=== PATIENT | male | born 1955 | race Caucasian/White ===

== ENCOUNTER 2022-03-23 17:08 | Inpatient (IN) | payer MEDICAID, MEDICARE ==
[~2022-03-23] VITALS: Ht 172.7 cm; Wt 56.7 kg
[2022-03-23 17:12] VITALS: BP_SYST 144
[2022-03-23] MEDS ORDERED: NACL 0.9% 1,000 ML IV ONE (17:30)
[2022-03-23] MEDS ORDERED: IBUPROFEN 800 MG TABLET PO ONE (17:30)
[2022-03-23 17:59] LABS: HEMATOCRIT 28.1 % (36-54); HEMOGLOBIN 9.7 g/dL (14.0-18.0); MEAN CORPUSCULAR HEMOGLOBIN 28 pg (27-31); MEAN CORPUSCULAR HGB CONC 34 % (32-36); MEAN CORPUSCULAR VOLUME 82 fL (79.0-98.0); PLATELET COUNT (AUTO) 218 K/uL (130-430); RED BLOOD CELL COUNT(AUTO) 3.43 MIL/uL (4.2-6.2); RED CELL DISTRIBUTION WIDTH 14.6 % (9.0-15.0)
[2022-03-23 18:19] LABS: ANION GAP 10 (5-15)
[2022-03-23 18:27] LABS: BAND % (MANUAL) 20 % (0-6); BASOPHILS % (MANUAL) 0 % (0-2); EOSINOPHILS % (MANUAL) 0 % (0-7); LYMPHOCYTES % (MANUAL) 2 % (20-46); MONOCYTES % (MANUAL) 1 % (0-11)
[2022-03-23] MEDS ORDERED: VANCOMYCIN HCL 1,000 MG in NS 250 ML IV ONE (18:30)
[2022-03-23] MEDS ORDERED: PIPERACILLIN/TAZO 3.375 GM in NS 50 ML IV ONE (18:30)
[2022-03-23] MEDS ORDERED: PIPERACILLIN/TAZOBACTAM 3.375 GM/VIAL (ZOSYN) IV ONE (18:33)
[2022-03-23 18:34] LABS: ALANINE AMINOTRANSFERASE 18 U/L (12-78); ALBUMIN 3.1 g/dL (3.4-4.8); ASPARTATE AMINOTRANSFERASE 58 U/L (10-37); TOTAL BILIRUBIN 0.5 mg/dL (0.0-1.0)
[2022-03-23 18:38] LABS: GFR AFRICAN AMERICAN 20 mL/min (>90)
[2022-03-23 18:41] LABS: CALCIUM 7.9 mg/dL (8.4-11.0); CHLORIDE 76 mmol/L (98-107); CREATININE 3.89 mg/dL (0.55-1.30); GLUCOSE 110 mg/dL (70-99); POTASSIUM 2.9 mmol/L (3.5-5.1); SODIUM SERUM 107 mmol/L (136-145); UREA NITROGEN, BLOOD 39 mg/dL (8-21)
[2022-03-23] MEDS ORDERED: KCL 20 mEq in NS 1000 mL 1,000 ML IV ONE (18:45)
[2022-03-23 19:03] LABS: PROTHROMBIN TIME 10.8 SECS (9.5-12.5)
[2022-03-23] MEDS ORDERED: VANCOMYCIN HCL 1000 MG/VIAL IV ONE (19:40)
[2022-03-23 20:41] LABS: CALCIUM 7.8 mg/dL (8.4-11.0)
[2022-03-23 21:01] LABS: BILIRUBIN,URINE NEGATIVE (NEGATIVE); BLOOD, URINE 2+ (NEGATIVE); CLARITY/URINE SL CLOUDY (CLEAR); COLOR,URINE YELLOW (YELLOW); GLUCOSE,URINE NEGATIVE (NEGATIVE); KETONES,URINE NEGATIVE (NEGATIVE); LEUKOCYTE ESTERASE ,URINE 1+ (NEGATIVE); NITRITE, URINE NEGATIVE (NEGATIVE); PROTEIN URINE 2+ (NEGATIVE); UROBILINOGEN,URINE 0.2 (0.2-1.0)
[2022-03-23] MEDS ORDERED: ONDANSETRON HCL 4 MG/2 ML VIAL IVP PRN (21:15)
[2022-03-23] MEDS ORDERED: ACETAMINOPHEN 325 MG TABLET PO PRN (21:15)
[2022-03-23] MEDS ORDERED: SODIUM CHLORIDE 3% *HI-ALERT* 500 ML IV ONE ×2 (21:15→22:54)
[2022-03-23 21:22] LABS: THYROID STIMULATING HORMONE 2.08 uIu/mL (0.36-3.74)
[2022-03-23 21:25] LABS: CREATININE 3.95 mg/dL (0.55-1.30); POTASSIUM 2.8 mmol/L (3.5-5.1)
[2022-03-23 21:27] LABS: BACTERIA,URINE MANY /HPF (None Seen); WBC,URINE 20-50 /HPF (0-3)
[2022-03-23 21:28] LABS: MUCUS,URINE None Seen /LPF (None Seen)
[2022-03-23 23:48] VITALS: BP_SYST 130
[2022-03-24 00:16] VITALS: BP_SYST 130
[2022-03-24] MEDS ORDERED: CALCIUM CHLORIDE 1 GM in NS 100 ML IV ONE (02:30)
[2022-03-24] MEDS: KCL 20 mEq in 100 mL (PREMIX) 100 ML IV SCH ×4 (02:30→19:27)
[2022-03-24] MEDS ORDERED: MAGNESIUM SULFATE 50 ML IV ONE ×3 (02:30→18:00)
[2022-03-24] MEDS ORDERED: CALCIUM CHLORIDE 1 GM/10ML VIAL (13.6 mEq Ca++/VIAL) ONE (04:05)
[2022-03-24] MEDS ORDERED: PIPERACILLIN/TAZOBACTAM 2.25 GM in NS 50 ML IV SCH (06:00)
[2022-03-24 06:11] LABS: HEMOGLOBIN 9.1 g/dL (14.0-18.0); WHITE BLOOD COUNT (AUTO) 19.1 K/uL (4.8-10.8)
[2022-03-24 06:15] LABS: ANION GAP 11 (5-15); CALCIUM 7.6 mg/dL (8.4-11.0); CREATININE 4.02 mg/dL (0.55-1.30); GLUCOSE 98 mg/dL (70-99); UREA NITROGEN, BLOOD 42 mg/dL (8-21)
[2022-03-24 06:17] LABS: BASOPHILS % (AUTO) 0.2 % (0.0-2.0); HEMATOCRIT 25.3 % (36-54); LYMPHOCYTES # (AUTO) 0.2 K/uL (1.0-5.5); LYMPHOCYTES % (AUTO) 1.3 % (20.5-51.5); MEAN CORPUSCULAR HEMOGLOBIN 29 pg (27-31); MEAN CORPUSCULAR HGB CONC 36 % (32-36); MEAN CORPUSCULAR VOLUME 81 fL (79.0-98.0); MONOCYTES # (AUTO) 0.8 K/uL (0.0-1.0); MONOCYTES % (AUTO) 4.1 % (1.7-9.3); NEUTROPHILS % (AUTO) 94.4 % (40.0-70.0); PLATELET COUNT (AUTO) 189 K/uL (130-430); RED BLOOD CELL COUNT(AUTO) 3.11 MIL/uL (4.2-6.2); RED CELL DISTRIBUTION WIDTH 15.2 % (9.0-15.0)
[2022-03-24 06:18] LABS: SODIUM SERUM 115 mmol/L (136-145)
[2022-03-24 06:19] LABS: CHLORIDE 85 mmol/L (98-107); GFR AFRICAN AMERICAN 19 mL/min (>90)
[2022-03-24 06:28] LABS: ALANINE AMINOTRANSFERASE 15 U/L (12-78); ALBUMIN 2.7 g/dL (3.4-4.8); ASPARTATE AMINOTRANSFERASE 64 U/L (10-37); THYROID STIMULATING HORMONE 1.76 uIu/mL (0.36-3.74); TOTAL BILIRUBIN 0.4 mg/dL (0.0-1.0)
[2022-03-24 06:32] LABS: ALCOHOL, BLOOD < 3 mg/dL (<10)
[2022-03-24] MEDS ORDERED: PIPERACILLIN/TAZOBACTAM 2.25 GM VIAL IV ONE (06:32)
[2022-03-24 08:40] VITALS: BP_SYST 133
[2022-03-24] MEDS ORDERED: MAGNESIUM SULFATE 1 GM/2 ML VIAL IVP ONE (09:30)
[2022-03-24] MEDS ORDERED: KCL 40 mEq in 100 mL (PREMIX) 100 ML IV ONE (09:30)
[2022-03-24] MEDS ORDERED: SODIUM CHLORIDE 3% *HI-ALERT* 500 ML IV ONE (11:15)
[2022-03-24 12:00] VITALS: BP_SYST 132
[2022-03-24] MEDS: PIPERACILLIN/TAZOBACTAM 2.25 GM in NS 50 ML IV SCH ×2 (15:12→21:29)
[2022-03-24 17:05] VITALS: BP_SYST 134
[2022-03-24 20:00] VITALS: BP_SYST 132
[2022-03-24 20:42] LABS: POTASSIUM 3.6 mmol/L (3.5-5.1)
[2022-03-25 00:26] VITALS: BP_SYST 135
[2022-03-25] MEDS: PIPERACILLIN/TAZOBACTAM 2.25 GM in NS 50 ML IV SCH ×3 (06:53→22:04)
[2022-03-25 08:07] LABS: ALKALINE PHOSPHATASE 64 IU/L (44-121)
[2022-03-25 08:30] VITALS: BP_SYST 124
[2022-03-25 08:30] LABS: CALCIUM 8.1 mg/dL (8.4-11.0); CREATININE 3.98 mg/dL (0.55-1.30); POTASSIUM 3.7 mmol/L (3.5-5.1)
[2022-03-25] MEDS: ATORVASTATIN 20 MG TABLET PO SCH (08:53)
[2022-03-25] MEDS: ASPIRIN 81 MG TAB.CHEW PO SCH (08:53)
[2022-03-25] MEDS ORDERED: LORazepam 2 MG/ML VIAL IM ONE (09:30)
[2022-03-25 11:28] LABS: BASOPHILS # (AUTO) 0.1 K/uL (0.0-0.2); BASOPHILS % (AUTO) 1.1 % (0.0-2.0); EOSINOPHILS % (AUTO) 0.1 % (0.0-4.0); HEMATOCRIT 25.6 % (36-54); HEMOGLOBIN 9.2 g/dL (14.0-18.0); LYMPHOCYTES # (AUTO) 0.3 K/uL (1.0-5.5); LYMPHOCYTES % (AUTO) 3.2 % (20.5-51.5); MEAN CORPUSCULAR HEMOGLOBIN 30 pg (27-31); MEAN CORPUSCULAR HGB CONC 36 % (32-36); MEAN CORPUSCULAR VOLUME 82 fL (79.0-98.0); MONOCYTES # (AUTO) 0.5 K/uL (0.0-1.0); MONOCYTES % (AUTO) 5.6 % (1.7-9.3); NEUTROPHILS # (AUTO) 7.6 K/uL (1.8-7.7); PLATELET COUNT (AUTO) 162 K/uL (130-430); RED BLOOD CELL COUNT(AUTO) 3.11 MIL/uL (4.2-6.2); RED CELL DISTRIBUTION WIDTH 14.8 % (9.0-15.0); WHITE BLOOD COUNT (AUTO) 8.4 K/uL (4.8-10.8)
[2022-03-25 11:35] VITALS: BP_SYST 128
[2022-03-25] MEDS: NACL 0.9% 1,000 ML IV SCH (11:49)
[2022-03-25 16:00] VITALS: BP_SYST 126
[2022-03-25 22:15] VITALS: BP_SYST 154
[2022-03-26] MEDS: NACL 0.9% 1,000 ML IV SCH ×2 (00:20→15:25)
[2022-03-26 01:22] VITALS: BP_SYST 161
[2022-03-26] MEDS: PIPERACILLIN/TAZOBACTAM 2.25 GM in NS 50 ML IV SCH ×3 (05:28→21:25)
[2022-03-26 06:59] LABS: BASOPHILS # (AUTO) 0.1 K/uL (0.0-0.2); BASOPHILS % (AUTO) 1.3 % (0.0-2.0); EOSINOPHILS # (AUTO) 0.1 K/uL (0.0-0.4); EOSINOPHILS % (AUTO) 1.3 % (0.0-4.0); HEMATOCRIT 26.5 % (36-54); HEMOGLOBIN 9.4 g/dL (14.0-18.0); LYMPHOCYTES # (AUTO) 0.5 K/uL (1.0-5.5); LYMPHOCYTES % (AUTO) 6.1 % (20.5-51.5); MEAN CORPUSCULAR HEMOGLOBIN 29 pg (27-31); MEAN CORPUSCULAR HGB CONC 36 % (32-36); MEAN CORPUSCULAR VOLUME 82 fL (79.0-98.0); MONOCYTES # (AUTO) 0.6 K/uL (0.0-1.0); MONOCYTES % (AUTO) 8.4 % (1.7-9.3); NEUTROPHILS # (AUTO) 6.2 K/uL (1.8-7.7); NEUTROPHILS % (AUTO) 82.9 % (40.0-70.0); PLATELET COUNT (AUTO) 161 K/uL (130-430); RED BLOOD CELL COUNT(AUTO) 3.22 MIL/uL (4.2-6.2); RED CELL DISTRIBUTION WIDTH 15.3 % (9.0-15.0); WHITE BLOOD COUNT (AUTO) 7.5 K/uL (4.8-10.8)
[2022-03-26 07:33] LABS: ALBUMIN 2.6 g/dL (3.4-4.8); CALCIUM 8.1 mg/dL (8.4-11.0); CREATININE 3.9 mg/dL (0.55-1.30); POTASSIUM 3.7 mmol/L (3.5-5.1); TOTAL BILIRUBIN 0.3 mg/dL (0.0-1.0)
[2022-03-26 08:21] VITALS: BP_SYST 158
[2022-03-26] MEDS: ASPIRIN 81 MG TAB.CHEW PO SCH (08:33)
[2022-03-26] MEDS: ATORVASTATIN 20 MG TABLET PO SCH (08:34)
[2022-03-26 12:58] VITALS: BP_SYST 150
[2022-03-26 16:58] VITALS: BP_SYST 150
[2022-03-26] MEDS: SODIUM CHLORIDE 500 MG TABLET PO SCH (21:25)
[2022-03-26 22:13] VITALS: BP_SYST 158
[2022-03-27 01:41] VITALS: BP_SYST 160
[2022-03-27] MEDS: NACL 0.9% 1,000 ML IV SCH (06:20)
[2022-03-27] MEDS: PIPERACILLIN/TAZOBACTAM 2.25 GM in NS 50 ML IV SCH (06:20)
[2022-03-27 08:00] VITALS: BP_SYST 165
[2022-03-27] MEDS: ASPIRIN 81 MG TAB.CHEW PO SCH (09:20)
[2022-03-27] MEDS: ATORVASTATIN 20 MG TABLET PO SCH (09:20)
[2022-03-27] MEDS: SODIUM CHLORIDE 500 MG TABLET PO SCH ×3 (09:21→21:11)
[2022-03-27] MEDS ORDERED: CIPROFLOXACIN HCL 500 MG TABLET PO ONE (12:45)
[2022-03-27 12:47] VITALS: BP_SYST 157
[2022-03-27] MEDS ORDERED: DAPTOmycin 350 MG in NS 50 ML IV SCH (15:00)
[2022-03-27] MEDS: DAPTOmycin 350 MG in NS 50 ML IV SCH (16:19)
[2022-03-27 16:57] VITALS: BP_SYST 155
[2022-03-27 20:00] VITALS: BP_SYST 177
[2022-03-27] MEDS: CIPROFLOXACIN HCL 500 MG TABLET PO SCH (21:12)
[2022-03-28 03:06] LABS: ALK PHOSPAHATASE BONE FRACTION 26 % (12-68); INTESTINAL FRACTION 0 % (0-18); LIVER FRACTION 74 % (13-88)
[2022-03-28] MEDS: NACL 0.9% 1,000 ML IV SCH ×2 (04:11→21:32)
[2022-03-28 08:00] VITALS: BP_SYST 127
[2022-03-28] MEDS: ASPIRIN 81 MG TAB.CHEW PO SCH (08:23)
[2022-03-28] MEDS: ATORVASTATIN 20 MG TABLET PO SCH (08:23)
[2022-03-28] MEDS: SODIUM CHLORIDE 500 MG TABLET PO SCH ×3 (08:23→21:24)
[2022-03-28] MEDS: CIPROFLOXACIN HCL 500 MG TABLET PO SCH ×2 (11:03→21:24)
[2022-03-28 12:00] VITALS: BP_SYST 179
[2022-03-28 12:50] LABS: CALCIUM 8.3 mg/dL (8.4-11.0); CREATININE 3.82 mg/dL (0.55-1.30)
[2022-03-28 16:00] VITALS: BP_SYST 171
[2022-03-28 20:00] VITALS: BP_SYST 171
[2022-03-29] MEDS: cloNIDine HCL 0.1 MG TABLET PO PRN (00:17)
[2022-03-29 03:31] VITALS: BP_SYST 149
[2022-03-29] MEDS: ATORVASTATIN 20 MG TABLET PO SCH (08:18)
[2022-03-29] MEDS: ASPIRIN 81 MG TAB.CHEW PO SCH (08:18)
[2022-03-29] MEDS: SODIUM CHLORIDE 500 MG TABLET PO SCH ×3 (08:18→21:21)
[2022-03-29 09:05] VITALS: BP_SYST 148
[2022-03-29] MEDS: CIPROFLOXACIN HCL 500 MG TABLET PO SCH ×2 (09:19→21:20)
[2022-03-29] MEDS: DAPTOmycin 350 MG in NS 50 ML IV SCH (15:08)
[2022-03-29 16:56] VITALS: BP_SYST 145
[2022-03-29 23:35] VITALS: BP_SYST 140
[2022-03-30 06:37] LABS: BASOPHILS # (AUTO) 0.1 K/uL (0.0-0.2); BASOPHILS % (AUTO) 1.2 % (0.0-2.0); EOSINOPHILS # (AUTO) 0.4 K/uL (0.0-0.4); EOSINOPHILS % (AUTO) 5.5 % (0.0-4.0); HEMATOCRIT 24.7 % (36-54); HEMOGLOBIN 8.7 g/dL (14.0-18.0); LYMPHOCYTES # (AUTO) 1.5 K/uL (1.0-5.5); LYMPHOCYTES % (AUTO) 22.4 % (20.5-51.5); MEAN CORPUSCULAR HEMOGLOBIN 29 pg (27-31); MEAN CORPUSCULAR HGB CONC 35 % (32-36); MEAN CORPUSCULAR VOLUME 83 fL (79.0-98.0); MONOCYTES # (AUTO) 0.6 K/uL (0.0-1.0); MONOCYTES % (AUTO) 8.7 % (1.7-9.3); NEUTROPHILS # (AUTO) 4.2 K/uL (1.8-7.7); NEUTROPHILS % (AUTO) 62.2 % (40.0-70.0); PLATELET COUNT (AUTO) 204 K/uL (130-430); RED CELL DISTRIBUTION WIDTH 15.2 % (9.0-15.0); WHITE BLOOD COUNT (AUTO) 6.8 K/uL (4.8-10.8)
[2022-03-30 07:12] LABS: ALBUMIN 2.6 g/dL (3.4-4.8); CALCIUM 8.6 mg/dL (8.4-11.0); CREATININE 4.39 mg/dL (0.55-1.30); THYROID STIMULATING HORMONE 2.49 uIu/mL (0.36-3.74); TOTAL BILIRUBIN 0.1 mg/dL (0.0-1.0)
[2022-03-30 08:00] VITALS: BP_SYST 160
[2022-03-30] MEDS: SODIUM CHLORIDE 500 MG TABLET PO SCH ×3 (09:31→21:30)
[2022-03-30] MEDS: ATORVASTATIN 20 MG TABLET PO SCH (09:31)
[2022-03-30] MEDS: ASPIRIN 81 MG TAB.CHEW PO SCH (09:31)
[2022-03-30] MEDS: CIPROFLOXACIN HCL 500 MG TABLET PO SCH ×2 (09:32→21:31)
[2022-03-30 09:37] LABS: TOTAL IRON BIND. CAPACITY 177 ug/dL (250-450)
[2022-03-30] MEDS: NACL 0.9% 1,000 ML IV SCH (11:44)
[2022-03-30] MEDS: cloNIDine HCL 0.1 MG TABLET PO PRN (12:20)
[2022-03-30 12:38] VITALS: BP_SYST 156; BP_SYST 165
[2022-03-30] MEDS ORDERED: cloNIDine HCL 0.1 MG TABLET PO ONE ×2 (15:30→16:45)
[2022-03-30] MEDS ORDERED: POTASSIUM CHLORIDE 40 MEQ in NS 250 ML IV ONE (16:15)
[2022-03-30] MEDS ORDERED: amLODIPine BESYLATE 10 MG TABLET PO ONE (16:45)
[2022-03-30] MEDS ORDERED: cloNIDine HCL 0.2 MG TABLET PO PRN (16:45)
[2022-03-30 16:52] VITALS: BP_SYST 174
[2022-03-30 20:00] VITALS: BP_SYST 161
[2022-03-30] MEDS: metroNIDAZOLE 500 MG TABLET PO SCH (21:30)
[2022-03-31] VITALS: BP_SYST 151
[2022-03-31] MEDS: NACL 0.9% 1,000 ML IV SCH (04:39)
[2022-03-31 04:40] VITALS: BP_SYST 140
[2022-03-31 06:38] LABS: BASOPHILS # (AUTO) 0.1 K/uL (0.0-0.2); BASOPHILS % (AUTO) 1.2 % (0.0-2.0); EOSINOPHILS # (AUTO) 0.4 K/uL (0.0-0.4); EOSINOPHILS % (AUTO) 5.7 % (0.0-4.0); HEMATOCRIT 24.2 % (36-54); HEMOGLOBIN 8.6 g/dL (14.0-18.0); LYMPHOCYTES # (AUTO) 1.5 K/uL (1.0-5.5); LYMPHOCYTES % (AUTO) 22.7 % (20.5-51.5); MEAN CORPUSCULAR HEMOGLOBIN 29 pg (27-31); MEAN CORPUSCULAR HGB CONC 36 % (32-36); MEAN CORPUSCULAR VOLUME 82 fL (79.0-98.0); MONOCYTES # (AUTO) 0.6 K/uL (0.0-1.0); MONOCYTES % (AUTO) 9.4 % (1.7-9.3); PLATELET COUNT (AUTO) 243 K/uL (130-430); RED BLOOD CELL COUNT(AUTO) 2.94 MIL/uL (4.2-6.2); RED CELL DISTRIBUTION WIDTH 15.1 % (9.0-15.0); WHITE BLOOD COUNT (AUTO) 6.5 K/uL (4.8-10.8)
[2022-03-31 07:06] LABS: FOLATE (FOLIC ACID) 5.7 ng/mL (>3.0)
[2022-03-31 07:14] LABS: ALBUMIN 2.6 g/dL (3.4-4.8); CALCIUM 8.2 mg/dL (8.4-11.0); CREATININE 4.32 mg/dL (0.55-1.30); POTASSIUM 4.2 mmol/L (3.5-5.1); TOTAL BILIRUBIN 0.1 mg/dL (0.0-1.0)
[2022-03-31 07:46] VITALS: BP_SYST 121
[2022-03-31] MEDS: amLODIPine BESYLATE 10 MG TABLET PO SCH (08:22)
[2022-03-31] MEDS: ATORVASTATIN 20 MG TABLET PO SCH (08:22)
[2022-03-31] MEDS: metroNIDAZOLE 500 MG TABLET PO SCH ×2 (08:22→20:20)
[2022-03-31] MEDS: ASPIRIN 81 MG TAB.CHEW PO SCH (08:22)
[2022-03-31] MEDS: SODIUM CHLORIDE 500 MG TABLET PO SCH (08:22)
[2022-03-31] MEDS ORDERED: POTASSIUM CHLORIDE 20 MEQ/PKT PACKET PO SCH (09:00)
[2022-03-31] MEDS: CIPROFLOXACIN HCL 500 MG TABLET PO SCH ×2 (10:54→20:20)
[2022-03-31] MEDS ORDERED: ACET325T PO (11:36)
[2022-03-31] MEDS ORDERED: METR-154 PO (11:36)
[2022-03-31] MEDS ORDERED: CIPR500T5 PO (11:36)
[2022-03-31] MEDS ORDERED: NOR10 PO (11:36)
[2022-03-31] MEDS ORDERED: CLON0.2T PO (11:36)
[2022-03-31] MEDS ORDERED: ASA81 PO (11:36)
[2022-03-31 12:03] VITALS: BP_SYST 120
[2022-03-31 16:00] VITALS: BP_SYST 118
[2022-03-31] MEDS ORDERED: SODIUM BICARBONATE 8.4% JECT 50 MEQ/50 ML SYRINGE IVP ONE (16:15)
[2022-03-31 20:00] VITALS: BP_SYST 117
[2022-04-01 00:44] VITALS: BP_SYST 143
[2022-04-01] MEDS: NACL 0.9% 1,000 ML IV SCH (03:06)
[2022-04-01 08:00] VITALS: BP_SYST 122
[2022-04-01 08:07] LABS: CALCIUM 8.1 mg/dL (8.4-11.0); CREATININE 4.57 mg/dL (0.55-1.30); POTASSIUM 4.3 mmol/L (3.5-5.1)
[2022-04-01] MEDS: ASPIRIN 81 MG TAB.CHEW PO SCH (09:19)
[2022-04-01] MEDS: metroNIDAZOLE 500 MG TABLET PO SCH (09:19)
[2022-04-01] MEDS: CIPROFLOXACIN HCL 500 MG TABLET PO SCH (09:19)
[2022-04-01] MEDS: ATORVASTATIN 20 MG TABLET PO SCH (09:19)
[2022-04-01] MEDS: amLODIPine BESYLATE 10 MG TABLET PO SCH (09:20)
[2022-04-01 12:00] VITALS: BP_SYST 148
[2022-04-01] MEDS ORDERED: SODIUM BICARBONATE 650 MG TABLET PO SCH (15:00)
[2022-04-01 16:31] VITALS: BP_SYST 149
[2022-04-01 17:10] VITALS: BP_SYST 149
[2022-04-01 20:00] LABS: CREATININE,URINE 17.8 MG/DL (30-125)
[2022-04-01 20:12] LABS: CREATININE 4.32 mg/dL (0.55-1.30); CREATININE CLEARANCE,URINE 10.6 ml/min (80-120)
[2022-04-04] MEDS ORDERED: EPOETIN ALFA-EPBX 4,000 UNITS/ML VIAL SUBCUT SCH (17:00)
== END 2022-04-01 23:41 | DRG 720 ==
LOC: SED 17:08 → SMU 21:21 → STU 22:21
PROVIDERS: ADMIT Family Medicine; ATTEND Family Medicine
PROC: 0T9B70Z Drainage of Bladder with Drainage Device, Via Natural or Artificial Opening (ICD-10-PCS; principal; 2022-03-23)
PROC: 05HY33Z Insertion of Infusion Device into Upper Vein, Percutaneous Approach (ICD-10-PCS; 2022-03-23)
DX: A41.9 Sepsis, unspecified organism (principal); N17.0 Acute kidney failure with tubular necrosis; G93.41 Metabolic encephalopathy; E44.0 Moderate protein-calorie malnutrition; E87.1 Hypo-osmolality and hyponatremia; M62.82 Rhabdomyolysis; E11.22 Type 2 diabetes mellitus with diabetic chronic kidney disease; D64.9 Anemia, unspecified; N39.0 Urinary tract infection, site not specified; E87.6 Hypokalemia; B96.1 Klebsiella pneumoniae [K. pneumoniae] as the cause of diseases classified elsewhere; B96.89 Other specified bacterial agents as the cause of diseases classified elsewhere; E03.9 Hypothyroidism, unspecified; F03.90 Unspecified dementia, unspecified severity, without behavioral disturbance, psychotic disturbance, mood disturbance, and anxiety; R29.710 NIHSS score 10; K21.9 Gastro-esophageal reflux disease without esophagitis; R29.810 Facial weakness; R65.20 Severe sepsis without septic shock; N18.9 Chronic kidney disease, unspecified; I12.9 Hypertensive chronic kidney disease with stage 1 through stage 4 chronic kidney disease, or unspecified chronic kidney disease; E11.51 Type 2 diabetes mellitus with diabetic peripheral angiopathy without gangrene; Z86.73 Personal history of transient ischemic attack (TIA), and cerebral infarction without residual deficits; Z89.511 Acquired absence of right leg below knee; Z79.82 Long term (current) use of aspirin; Z68.1 Body mass index [BMI] 19.9 or less, adult
CPT/HCPCS: 36415; 70450-TC; 70551; 71045; 73560-TC; 76376; 76770; 80048; 80053; 80061; 81000; 82140; 82533; 82550; 82553; 82575; 82607; 82746; 82962; 83540; 83550; 83605; 83735; 83880; 84075; 84080; 84132; 84443; 84484; 85007; 85025; 85027; 85610-TC; 85730-TC; 87040; 87081; 87086; 92610-GN; 93005; 93306; 96361; 96365; 96368; 99291; G0378; G0482; J0878; J2060; J2543; J3370; J3475; J3480; J3490; J7030